=== PATIENT | male | born 1955 | race Caucasian/White ===

== ENCOUNTER → 2017-12-20 | Outpatient (CLI) | payer OTHER ==
[~2017-12-20] MED LIST: ALDACTONE25 MG PO; AMARYL4 MG PO; AMBIEN 5 MG TABL5 M1 PO; ANUCORT-HC25 MG RECTAL; APAP650 PO; ASPIRIN325 PO; ATORVASTATIN CA40 MG PO; BENADRYL25 MG PO; BENZTROPINE ME0.5 MG PO; BISACODYL SUPP10 MG RECTAL; CARDIZEM CD240 MG PO; COREG3.125 MG PO; COZAAR 25 MG TA25 M1 PO; DILTIAZEM ER90 M1 PO; EFFIENT10 MG PO; GLUCOPHAGE1000 MG PO; GLUCOSE15 GM/59 M PO; GLUCOSE4 GM PO; HUMULIN R100 UNIT/M SUBQ; IRON325 PO; LASIX 20 MG TAB20 MG PO; LASIX 40 MG TAB40 M2 PO; LEVEMIR SUBQ; LEVOTHYROXIN0.025 MG PO; LEVOTHYROXINE0.05 MG PO; LOPERAMIDE 2 MG2 M1 PO; METFORMIN HCL500 MG PO; MIRALAX17 GM PO; MIRALAX255 GM PO; ONDANSETRON HCL4 M2 PO; PRILOSEC20 MG PO; PROTONIX40 M1 PO; SENNA-S TABLET1 EACH PO; SEROQUEL PO; SEROQUEL200 MG PO; TRAMADOL 50 MG50 MG PO; TRIPLE ANTIBIO1 EACH; VITAMIN D1000 UNI1 PO
== END ==
LOC: NUC 07:22
DX: E78.00 Pure hypercholesterolemia, unspecified (principal); R06.00 Dyspnea, unspecified; R07.9 Chest pain, unspecified; E11.9 Type 2 diabetes mellitus without complications; I10 Essential (primary) hypertension; I25.10 Atherosclerotic heart disease of native coronary artery without angina pectoris; E78.5 Hyperlipidemia, unspecified